=== PATIENT | male | born 1960 ===

== ENCOUNTER 2019-05-31 16:03 | Emergency (ER) | payer BC ==
[2019-05-31 16:55] LABS: Absolute Lymphocytes (CBC) 2.2 K/uL (0.7-4.9); Basophils % 0.8 % (0-1.3); Hematocrit 40.9 % (39.6-49.0); Lymphocytes % 23.7 % (15.3-44.8); MPV 9.1 fL (7.6-11.3); RBC Red Blood Cell Count 5.49 M/uL (4.33-5.43)
[2019-05-31 16:59] LABS: Protime INR 1.18
[2019-05-31 17:17] LABS: ALT/SGPT 22 U/L (12-78); AST/SGOT 15 U/L (15-37); Albumin 3.9 g/dL (3.4-5.0); Alkaline Phosphatase 66 U/L (45-117); BUN Blood Urea Nitrogen 12 mg/dL (7-18); Bicarbonate 29 mmol/L (21-32); Bilirubin Direct 0.1 mg/dL (0-0.2); Bilirubin Total 0.4 mg/dL (0.2-1.0); Glucose Level 120 mg/dL (74-106); Magnesium 1.9 mg/dL (1.8-2.4); NT PRO-BNP 136 pg/mL (<125); Potassium 4.3 mmol/L (3.5-5.1); Protein, Total 6.8 g/dL (6.4-8.2); Sodium Level 143 mmol/L (136-145); Troponin (Emerg Dept Use Only) < 0.02 ng/mL (0.0-0.045)
[2019-05-31] MEDS ORDERED: IBUPROFEN 400 MG TAB ONE (17:40)
[2019-05-31] MEDS ORDERED: IBUPROFEN 200 MG TAB PO ONE (17:41)
--- NOTE | 2019-05-31 17:44 | RAD REPORT ---
EXAM DESCRIPTION: RAD - Chest Single View - 05/31/2019 5:36 pm CLINICAL HISTORY: HTN Chest pain. COMPARISON: No comparisons FINDINGS: Portable technique limits examination quality. The lungs are grossly clear. The heart is mildly enlarged in size with a single lead pacer device pre sent. No displaced fractures.
--- NOTE | 2019-05-31 18:12 | RAD REPORT ---
EXAM DESCRIPTION: CT - Head Brain Wo Cont - 05/31/2019 6:05 pm CLINICAL HISTORY: HEADACHE Headache, drowsiness COMPARISON: No comparisons TECHNIQUE: All CT scans are performed using dose optimization technique as appropriate and may inclu de automated exposure control or mA/KV adjustment according to patient size. FINDINGS: No intracranial hemorrhage, hydrocephalus or extra-axial fluid collection.Mild brain atrop hy is noted.No areas of brain edema or evidence of midline shift. Mild mucosal thickening affects the right maxillary antrum. The paranasal sinuses and mastoids are ot herwise clear. The calvarium is intact. IMPRESSION: No acute intracranial abnormality.
--- NOTE | 2019-05-31 18:17 | RAD REPORT ---
EXAM DESCRIPTION: CT - Chest Abdomen Pelvis W Cont - 05/31/2019 6:05 pm CLINICAL HISTORY: Chest and abdomen pain. Abdominal pain COMPARISON: No comparisons TECHNIQUE: Approximately 100 mL nonionic IV contrast was administered to the patient. All CT scans are performed using dose optimization technique as appropriate and may include automated exposure control or mA/KV adjustment according to patient size. FINDINGS: Mild COPD is present. 6 x 5 mm noncalcified pulmonary nodule is present in right middle lo be posteriorly (image 28/85).Pacemaker noted.No pleural or pericardial effusion.No intrathoracic daysi opathy. The liver, spleen, pancreas, adrenal glands and kidneys are within normal limits. No bowel obstruction, free air, free fluid or abscess. The appendix is not identified as a discrete s tructure, however, no secondary findings of appendicitis are identified. Sigmoid diverticulosis coli without diverticulitis. No pathologic lymphadenopathy in the abdomen or pelvis. Small fat containing inguinal hernias. Moderate thoracic degenerative changes in the spine. No acute fracture. IMPRESSION: No acute process is identified. 6 x 5 mm noncalcified pulmonary nodule right middle lobe. Recommend follow-up CT chest in 6 months.
[2019-05-31 19:38] LABS: Urine Blood NEGATIVE (NEG); Urine Glucose NEGATIVE (NEG); Urine Protein NEGATIVE (NEG); Urine pH 5.5 (5.0-7.0)
--- NOTE | 2019-05-31 20:29 | EDPHYS ---
Physician Documentation [facility] Name: Jonah Johnson Age: 59 yrs Sex: Male : 1960 Arrival Date: 05/31/2019 Time: 16:07 Bed 6 Private MD: ED Physician Bryan Wellington HPI: 05/31 18:49 This 59 yrs old Unknown Male presents to ER via Ambulatory with complaints of High kdr Blood Pressure, Upper Abd Pain. 18:49 The patient c/o intermittent upper abdominal pain the is hard to describe. He notes kdr that when he has the discomfort that it radiates up to the back of his neck and gives him a mild SHEPHERD. The patient is a 1-2 ppd smoker. He is not on any anti-hypertensive medications. He has no other c/o in the ED. Onset: The symptoms/episode began/occurred gradually. Severity of symptoms: At their worst the symptoms were mild moderate just prior to arrival, today, in the emergency department the symptoms have resolved and did so earlier today, have improved. The patient has experienced similar episodes in the past, a few times, but today's symptoms are worse, Over the last few weeks. The patient has not recently seen a physician. Historical: - Allergies: 16:10 No Known Allergies; sv - Home Meds: 16:10 levothyroxine 200 mcg tab [Active]; sv - PSHx: 16:10 pacemaker; sv - Immunization history:: Adult Immunizations. - Social history:: Smoking status: . - Ebola Screening: : Patient denies travel to an Ebola-affected area in the 21 days before illness onset. ROS: 18:49 Constitutional: Negative for fever, chills, and weight loss, Eyes: Negative for injury, kdr pain, redness, and discharge, Neck: Negative for injury, pain, and swelling, Cardiovascular: Negative for chest pain, palpitations, and edema, Respiratory: Negative for shortness of breath, cough, wheezing, and pleuritic chest pain, Back: Negative for injury and pain, : Negative for injury, bleeding, discharge, and swelling, MS/Extremity: Negative for injury and deformity, Skin: Negative for injury, rash, and discoloration, Neuro: Negative for headache, weakness, numbness, tingling, and seizure activity. Psych: Negative for depression, anxiety, suicide ideation, homicidal ideation, and hallucinations, Allergy/Immunology: Negative for hives, rash, and allergies, Endocrine: Negative for neck swelling, polydipsia, polyuria, polyphagia, and marked weight changes, Hematologic/Lymphatic: Negative for swollen nodes, abnormal bleeding, and unusual bruising. 18:49 Abdomen/GI: Positive for abdominal pain, Negative for nausea and vomiting, constipation, abdominal cramps, abdominal distension, anorexia, black/tarry stool, rectal pain, rectal bleeding, bowel incontinence. 18:49 MS/extremity: Positive for The patient does report s/s consistent with claudication. Exam: 18:49 Constitutional: This is a well developed, well nourished patient who is awake, alert, kdr and in no acute distress. Head/Face: Normocephalic, atraumatic. Eyes: Pupils equal round and reactive to light, extra-ocular motions intact. Lids and lashes normal. Conjunctiva and sclera are non-icteric and not injected. Cornea within normal limits. Periorbital areas with no swelling, redness, or edema. Neck: Trachea midline, no thyromegaly or masses palpated, and no cervical lymphadenopathy. Supple, full range of motion without nuchal rigidity, or vertebral point tenderness. No Meningismus. Chest/axilla: Normal chest wall appearance and motion. Nontender with no deformity. No lesions are appreciated. Cardiovascular: Regular rate and rhythm with a normal S1 and S2. No gallops, murmurs, or rubs. Normal PMI, no JVD. No pulse deficits. Respiratory: Lungs have equal breath sounds bilaterally, clear to auscultation and percussion. No rales, rhonchi or wheezes noted. No increased work of breathing, no retractions or nasal flaring. Abdomen/GI: Soft, non-tender, with normal bowel sounds. No distension or tympany. No guarding or rebound. No evidence of tenderness throughout. Back: No spinal tenderness. No costovertebral tenderness. Full range of motion. MS/ Extremity: Pulses equal, no cyanosis. Neurovascular intact. Full, normal range of motion. Neuro: Awake and alert, GCS 15, oriented to person, place, time, and situation. Cranial nerves II-XII grossly intact. Motor strength 5/5 in all extremities. Sensory grossly intact. Cerebellar exam normal. Normal gait. Psych: Awake, alert, with orientation to person, place and time. Behavior, mood, and affect are within normal limits. Vital Signs: 16:10 BP 132 / 105; Pulse 59; Resp 18; Temp 97.9(TE); Pulse Ox 98% ; Weight 92.99 kg; Height sv 5 ft. 9 in. (175.26 cm); 16:46 BP 125 / 100; Pulse 60; Resp 20; Pulse Ox 98% on R/A; ms 17:18 BP 118 / 91; Pulse 60; Resp 22; Pulse Ox 96% on R/A; tw2 18:14 BP 134 / 99; Pulse 60; Resp 18; Pulse Ox 98% on R/A; tw2 19:24 BP 138 / 86; Pulse 62; Resp 14; Temp 97.8; Pulse Ox 100% ; Pain 0/10; rr5 20:35 BP 135 / 85; Pulse 70; Resp 17; Temp 98; Pulse Ox 99% ; Pain 0/10; rr5 16:10 Body Mass Index 30.27 (92.99 kg, 175.26 cm) sv MDM: 18:46 Patient medically screened. jr8 18:49 Data reviewed: vital signs, nurses notes, lab test result(s), radiologic studies. kdr Counseling: I had a detailed discussion with the patient and/or guardian regarding: the historical points, exam findings, and any diagnostic results supporting the discharge/admit diagnosis, lab results, radiology results. 20:26 Data reviewed: EKG. Data interpreted: Pulse oximetry: on room air is 100 %. jr8 Interpretation: normal. Counseling: I had a detailed discussion with the patient and/or guardian regarding: the need for outpatient follow up, a family practitioner, to return to the emergency department if symptoms worsen or persist or if there are any questions or concerns that arise at home. Response to treatment: the patient's symptoms have resolved after treatment. 20:26 ED course: Patient remains stable in ED. No CP at this time. x2 troponin's both normal. jr8 Will send home to f/u with cardiology . 05/31 16:15 Order name: Basic Metabolic Panel kdr 05/31 16:15 Order name: CBC with Diff kdr 05/31 16:15 Order name: LFT's kdr 05/31 16:15 Order name: Magnesium kdr 05/31 16:15 Order name: NT PRO-BNP [facility] 05/31 16:15 Order name: PT-INR kdr 05/31 16:15 Order name: Troponin (emerg Dept Use Only) [facility] 05/31 16:53 Order name: CBC with Automated Diff; Complete Time: 17:17 EDMS 05/31 17:00 Order name: Protime (+INR); Complete Time: 17:17 EDMS 05/31 17:18 Order name: Basic Metabolic Panel; Complete Time: 18:32 EDMS 05/31 17:18 Order name: Liver (Hepatic) Function; Complete Time: 18:32 EDMS 05/31 17:18 Order name: Troponin (Emerg Dept Use Only); Complete Time: 18:32 EDMS 05/31 17:18 Order name: NT PRO-BNP; Complete Time: 18:32 EDMS 05/31 17:18 Order name: Magnesium; Complete Time: 18:32 EDMS 05/31 16:15 Order name: XRAY Chest (1 view) [facility] 05/31 16:15 Order name: EKG; Complete Time: 16:17 [facility] 05/31 16:15 Order name: Cardiac monitoring; Complete Time: 16:19 [facility] 05/31 16:15 Order name: EKG - Nurse/Tech; Complete Time: 16:45 [facility] 05/31 16:15 Order name: IV Saline Lock; Complete Time: 16:45 [facility] 05/31 16:15 Order name: Labs collected and sent; Complete Time: 16:45 [facility] 05/31 16:32 Order name: CT Chest, Abdomen, Pelvis - W/Contrast [facility] 05/31 16:33 Order name: CT Head Brain wo Cont [facility] 05/31 17:48 Order name: RAD; Complete Time: 18:32 EDMS 05/31 18:14 Order name: CT; Complete Time: 18:32 EDMS 05/31 18:20 Order name: CT; Complete Time: 18:32 EDMS 05/31 18:35 Order name: Urine Dipstick--Ancillary (enter results) eb 05/31 18:45 Order name: Troponin (emerg Dept Use Only): Repeat at 19:45 [facility] 05/31 19:39 Order name: Urine Dipstick-Ancillary; Complete Time: 19:40 EDMS 05/31 20:22 Order name: Troponin (Emerg Dept Use Only); Complete Time: 20:26 EDOH 05/31 16:15 Order name: O2 Per Protocol; Complete Time: 16:19 kdr 05/31 16:15 Order name: O2 Sat Monitoring; Complete Time: 16:19 kdr 05/31 18:45 Order name: EKG - Nurse/Tech: Repeat at 19:45; Complete Time: 19:53 kdr Administered Medications: 17:42 Drug: Motrin 600 mg Route: PO; tw2 18:40 Follow up: Response: No adverse reaction; Pain is decreased tw2 Disposition: 06/01 08:50 Co-signature as Attending Physician, Bryan Wellington MD I agree with the assessment and [facility] plan of care. Disposition: 05/31/19 20:28 Discharged to Home. Impression: Chest pain, unspecified. - Condition is Stable. - Discharge Instructions: Nonspecific Chest Pain. - Medication Reconciliation Form, Thank You Letter, Antibiotic Education, Prescription Opioid Use form. - Follow up: Rizwan Dejesus MD; When: 2 - 3 days; Reason: Recheck today's complaints, Continuance of care, Re-evaluation by your physician. - Problem is new. - Symptoms have improved. Signatures: Dispatcher [employer] [facility] Cleo Child RN RN Bryan Cordova MD MD [facility] Timoteo Zhou PA PA jr8 Cecy Guzman RN RN tw2 Yaneth Beth RN RN ea Corrections: (The following items were deleted from the chart) 05/31 20:55 20:28 05/31/2019 20:28 Discharged to Home. Impression: Chest pain, unspecified. ea Condition is Stable. Forms are Medication Reconciliation Form, Thank You Letter, Antibiotic Education, Prescription Opioid Use. Follow up: Rizwan Dejesus; When: 2 - 3 days; Reason: Recheck today's complaints, Continuance of care, Re-evaluation by your physician. Problem is new. Symptoms have improved. jr8
--- NOTE | 2019-05-31 20:29 | ER ---
Nurse's Notes [facility] Name: Jonah Johnson Age: 59 yrs Sex: Male : 1960 Arrival Date: 05/31/2019 Time: 16:07 Bed 6 Private MD: Diagnosis: Chest pain, unspecified Presentation: 05/31 16:08 Presenting complaint: Patient states: intermittent epigastric pain x 1 month ago. c/o sv headache and HTN 177/117. Transition of care: patient was not received from another setting of care. Onset of symptoms was April 2019. Risk Assessment: Do you want to hurt yourself or someone else? Patient reports no desire to harm self or others. Care prior to arrival: None. 16:08 Method Of Arrival: Ambulatory sv 16:08 Acuity: KERLINE 2 sv 16:12 Presenting complaint: states: earlier when his head was hurting "he had a spell sv and kind of zoned out.". 18:14 Initial Sepsis Screen: Does the patient meet any 2 criteria? No. Patient's initial tw2 sepsis screen is negative. Does the patient have a suspected source of infection? No. Patient's initial sepsis screen is negative. Triage Assessment: 16:11 General: Appears in no apparent distress. comfortable, Behavior is calm, cooperative, sv appropriate for age. Pain: Complains of pain in epigastric area. Neuro: Level of Consciousness is awake, alert, obeys commands, Oriented to person, place, time, situation, Gait is steady. Respiratory: Respiratory effort is even, unlabored, Respiratory pattern is regular, symmetrical. Derm: Skin is normal. Historical: - Allergies: 16:10 No Known Allergies; sv - Home Meds: 16:10 levothyroxine 200 mcg tab [Active]; sv - PSHx: 16:10 pacemaker; sv - Immunization history:: Adult Immunizations. - Social history:: Smoking status: . - Ebola Screening: : Patient denies travel to an Ebola-affected area in the 21 days before illness onset. Screenin:50 Abuse screen: Denies threats or abuse. Nutritional screening: No deficits noted. tw2 Tuberculosis screening: No symptoms or risk factors identified. Fall Risk None identified. Assessment: 16:15 General: Appears in no apparent distress. well groomed, Behavior is calm, cooperative, tw2 appropriate for age. Pain: Complains of pain in abdomen. Neuro: Level of Consciousness is awake, alert, obeys commands, Oriented to person, place, time, situation. Neuro: Reports headache. Cardiovascular: Heart tones S1 S2 Patient's skin is warm and dry. Parent/caregiver reports patient has had high blood pressure and normally does not have high blood pressure, sitting at table when the episode occurred. Respiratory: Airway is patent Respiratory effort is even, unlabored, Respiratory pattern is regular, symmetrical, Breath sounds are clear bilaterally. GI: Abdomen is round non-distended, Bowel sounds present X 4 quads. Reports epigastric pain. : No signs and/or symptoms were reported regarding the genitourinary system. EENT: No signs and/or symptoms were reported regarding the EENT system. Derm: No signs and/or symptoms reported regarding the dermatologic system. Musculoskeletal: Range of motion: intact in all extremities. 17:18 Reassessment: Patient appears in no apparent distress at this time. No changes from tw2 previously documented assessment. Patient and/or family updated on plan of care and expected duration. Pain level reassessed. Patient is alert, oriented x 3, equal unlabored respirations, skin warm/dry/pink. 18:13 Reassessment: Patient appears in no apparent distress at this time. No changes from tw2 previously documented assessment. Patient and/or family updated on plan of care and expected duration. Pain level reassessed. Patient is alert, oriented x 3, equal unlabored respirations, skin warm/dry/pink. pt back from imaging at this time, still c/o headache. 19:20 General: Appears in no apparent distress. comfortable, Behavior is calm, cooperative, rr5 appropriate for age. Pain: Denies pain. Neuro: Level of Consciousness is awake, alert, obeys commands, Oriented to person, place, time, situation, Appropriate for age. Cardiovascular: Capillary refill < 3 seconds Patient's skin is warm and dry. Respiratory: Airway is patent Respiratory effort is even, unlabored, Respiratory pattern is regular, symmetrical. GI: No signs and/or symptoms were reported involving the gastrointestinal system. : No signs and/or symptoms were reported regarding the genitourinary system. EENT: No signs and/or symptoms were reported regarding the EENT system. Derm: Skin is intact, Skin temperature is warm. Musculoskeletal: Circulation, motion, and sensation intact. Capillary refill < 3 seconds. 19:55 Reassessment: Patient appears in no apparent distress at this time. Patient is alert, rr5 oriented x 3, equal unlabored respirations, skin warm/dry/pink. repeat cardiac enzyme and ECG done. Patient denies pain at this time. 20:35 Reassessment: Patient appears in no apparent distress at this time. Patient and/or rr5 family updated on plan of care and expected duration. Pain level reassessed. Patient is alert, oriented x 3, equal unlabored respirations, skin warm/dry/pink. discharge instruction given and explained without complaints made. verbalized understanding Patient denies pain at this time. Patient states feeling better. Patient states symptoms have improved. 20:53 Reassessment: Patient and/or family updated on plan of care and expected duration. Pain ea level reassessed. Patient is alert, oriented x 3, equal unlabored respirations, skin warm/dry/pink. Discharge instruction given to patient, verbalized the understanding of instruction. Pt left ambulatory without assistance accompanied by significant other. Patient denies pain at this time. Patient states feeling better. Vital Signs: 16:10 BP 132 / 105; Pulse 59; Resp 18; Temp 97.9(TE); Pulse Ox 98% ; Weight 92.99 kg; Height sv 5 ft. 9 in. (175.26 cm); 16:46 BP 125 / 100; Pulse 60; Resp 20; Pulse Ox 98% on R/A; ms 17:18 BP 118 / 91; Pulse 60; Resp 22; Pulse Ox 96% on R/A; tw2 18:14 BP 134 / 99; Pulse 60; Resp 18; Pulse Ox 98% on R/A; tw2 19:24 BP 138 / 86; Pulse 62; Resp 14; Temp 97.8; Pulse Ox 100% ; Pain 0/10; rr5 20:35 BP 135 / 85; Pulse 70; Resp 17; Temp 98; Pulse Ox 99% ; Pain 0/10; rr5 16:10 Body Mass Index 30.27 (92.99 kg, 175.26 cm) sv ED Course: 16:07 Patient arrived in ED. rg4 16:09 Triage completed. sv 16:10 Arm band placed on. sv 16:13 Placed in gown. Bed in low position. Call light in reach. Adult w/ patient. Cardiac tw2 monitor on. Pulse ox on. NIBP on. 16:14 Bryan Wellington MD is Attending Physician. kdr 16:45 Initial lab(s) drawn, by me, sent to lab. EKG done, by ED staff, reviewed by Bryan Wellington MD. Inserted saline lock: 20 gauge in right antecubital area, using aseptic technique. Blood collected. 16:50 Radiology exam delayed due to lab results not completed at this time. (BUN/Creatinine). bq 17:18 Cecy Guzman RN is Primary Nurse. tw2 18:46 Timoteo Zhou PA is PHCP. jr8 19:05 Report given to CHELSIE Fulton and CHELSIE Ames. tw2 19:20 Diet: Patient given snack. Patient given juice. Patient given water. rr5 19:27 Primary Nurse role handed off by Cecy Guzman RN tw2 19:53 Troponin (emerg Dept Use Only): Repeat at 19:45 Sent. dc 19:57 Donaldo Soarse RN is Primary Nurse. rr5 20:28 Rizwan Dejesus MD is Referral Physician. jr8 20:36 No provider procedures requiring assistance completed. IV discontinued, intact, rr5 bleeding controlled, No redness/swelling at site. Pressure dressing applied. Administered Medications: 17:42 Drug: Motrin 600 mg Route: PO; tw2 18:40 Follow up: Response: No adverse reaction; Pain is decreased tw2 Outcome: 20:28 Discharge ordered by . jr8 20:36 Discharged to home ambulatory, with family. rr5 20:36 Condition: stable 20:36 Discharge instructions given to patient, Instructed on discharge instructions, follow up and referral plans. Demonstrated understanding of instructions, follow-up care. 20:55 Patient left the ED. ea Signatures: Cleo Child RN Bryan Oneil MD MD kdr Quilty, Betty bq Solis, Maria ms Roszak, Josh, PA PA jr8 Cecy Guzman RN RN tw2 Batsheva Walker Jay [facility] Yaneth Beth RN RN ea Roque, Raymond, RN RN rr5 Corrections: (The following items were deleted from the chart) 16:11 16:10 92.99 kg; Height 5 ft. 9 in.; BMI: 30.2; sv sv 16:12 16:10 Resp 18bpm; Pulse Ox 98%; Temp 97.9F Temporal; 92.99 kg; Height 5 ft. 9 in.; BMI: sv 30.2; sv 16:12 16:10 Pulse 59bpm; Resp 18bpm; Pulse Ox 98%; Temp 97.9F Temporal; 92.99 kg; Height 5 sv ft. 9 in.; BMI: 30.2; sv 16:13 16:08 Acuity: KERLINE 3 sv sv
[2019-05-31 22:24] VITALS: O2SAT 99
[2019-05-31 22:49] VITALS: BP 108/52; TEMP 97.6
--- NOTE | 2019-06-01 11:33 | EKG ---
Test Date: 2019-05-31 Test Time: 19:51:37 Acid Maker: ELIZA MEASUREMENT RESULTS: Intervals: Rate: 61 IA: QRSD: 130 QT: 442 QTc: 444 [place]: P: 73 IA: QRS: -3 T: 71 INTERPRETIVE STATEMENTS: Demand pacemaker, interpretation is based on intrinsic rhythm Undetermined rhythm Right bundle branch block Abnormal ECG Compared to ECG 05/31/2019 16:33:21 Right bundle-branch block now present Electronically Signed On 06-01-19 11:30:56 CDT by Jelani Morejon
--- NOTE | 2019-06-01 11:34 | EKG ---
Test Date: 2019-05-31 Test Time: 16:33:21 Rescue Instructor: MEASUREMENT RESULTS: Intervals: Rate: 59 OR: QRSD: 156 QT: 474 QTc: 469 [place]: P: OR: QRS: 185 T: 65 INTERPRETIVE STATEMENTS: Electronic ventricular pacemaker No previous ECG available for comparison Electronically Signed On 06-01-19 11:31:18 CDT by Jelani Morejon
== END 2019-05-31 20:55 | disposition home or self-care (01) ==
LOC: ER 16:03
DX: R07.9 Chest pain, unspecified (principal); Z95.0 Presence of cardiac pacemaker; F17.210 Nicotine dependence, cigarettes, uncomplicated
CPT/HCPCS: 93005 ×2; 85025; 80048; 36415; 83735; 85610; 80076; 81003; 84484 ×2; 83880; 70450; 71260; 74177; 71045; 99284; Q9967